=== PATIENT | male | born 1975 | race Caucasian/White ===

== ENCOUNTER → 2019-02-23 | Outpatient (CLI) | payer BC, OTHER | LOC: RAD 10:46 | DX: M54.5 Low back pain (principal) ==

== ENCOUNTER → 2019-11-03 | Outpatient (CLI) | payer BC, OTHER | LOC: RAD 13:51 | DX: R07.89 Other chest pain (principal); R05 Cough ==

== ENCOUNTER → 2020-12-19 | Outpatient (CLI) | payer BC, OTHER | LOC: SJCVCIMAG 08:25 | PROVIDERS: ATTEND Internal Medicine | DX: R06.00 Dyspnea, unspecified (principal); R53.83 Other fatigue; E78.5 Hyperlipidemia, unspecified; R00.2 Palpitations; R07.89 Other chest pain ==